=== PATIENT | male | born 1945 | race Caucasian/White ===

== ENCOUNTER 2020-08-15 08:58 | Inpatient (IN) | payer OTHER ==
[~2020-08-15] VITALS: Ht 180.3 cm; Wt 90.7 kg
[2020-08-15 09:03] VITALS: BP 113/82
[2020-08-15] MEDS ORDERED: OMEPRAZOLE 20 M20 M1 PO (09:09)
[2020-08-15] MEDS ORDERED: LIPITOR40 MG PO (09:09)
[2020-08-15] MEDS ORDERED: CHLORTHALIDONE25 MG PO (09:09)
[2020-08-15] MEDS ORDERED: ASA81BEC PO (09:10)
[2020-08-15] MEDS ORDERED: VITAMIN D325 MC3 PO (09:10)
[2020-08-15] MEDS ORDERED: LISINOPRIL20 MG PO (09:10)
[2020-08-15] MEDS ORDERED: NORVASC10 MG PO (09:10)
[2020-08-15] MEDS ORDERED: CREON DR 24,001 EACH PO (09:11)
[2020-08-15] MEDS ORDERED: LEVEMIR100 UNIT/1 SUBQ (09:11)
[2020-08-15 09:21] LABS: ABSOLUTE EOSINOPHILS 0.1 thou/uL (0.0-0.7); ABSOLUTE LYMPHOCYTES 1.2 thou/uL (0.8-5.3); ABSOLUTE MONOCYTES 0.6 thou/uL (0.0-1.2); ABSOLUTE NEUTROPHILS 4.8 thou/uL (1.6-8.1); BASOPHILS 0.7 %; EOSINOPHILS 1.8 %; HEMOGLOBIN 12.8 gm/dL (14.0-18.0); LYMPHOCYTES 18.1 %; MCH 28.8 pg (26.0-34.0); MCHC 33.6 g/dL (28.0-37.0); MCV 85.8 fL (80.0-100.0); MPV 6.6 fl. (7.2-11.1); NUCLEATED RBCS 0 /100WBC; PLATELET COUNT* 190 thou/uL (150-400); POLYS 70.4 %; RBC 4.43 mil/uL (4.50-6.00); RDW-CV 16.1 % (10.5-14.5); WBC 6.8 thou/uL (4.0-11.0)
[2020-08-15 09:29] LABS: CALCIUM 7.9 mg/dL (8.5-10.1); CREATININE 1.9 mg/dL (0.6-1.3)
[2020-08-15 09:32] LABS: INR 1.1; PROTIME 11.6 Seconds (9.20-11.50)
[2020-08-15 09:41] LABS: ALBUMIN 3.3 g/dL (3.4-5.0); TOTAL BILIRUBIN 0.6 mg/dL (<0.1-1.0); TOTAL PROTEIN 6.3 g/dL (6.4-8.2)
--- NOTE | 2020-08-15 10:35 | EKG ---
[place] [address] ELECTROCARDIOGRAM REPORT Name: REYNAGLENYS Chanel Room: [facility]#: [id number] Admission: 08/15/20 Attend Phys: Discharge: Date of : 47 Date of Service: 08/15/20901 Report #: [id number] THIS REPORT FOR: //name// [facility] ED Test Date: 2020-08-15 Test Time: 09:02:01 Pat Name: GLENYS ORELLANA Department: Room: Gender: Set Builder: COLIN : 1945 Requested By: Jonas Miller Order Number: [id number] MD: Trevon Khan Measurements Intervals [place] Rate: 103 P: 64 [place]: 204 QRS: -72 QRSD: 84 T: 94 QT: 340 QTc: 445 Interpretive Statements Sinus tachycardia Atrial premature complex Abnormal R-wave progression, early transition Inferior infarct, old Consider anterior infarct Lateral leads are also involved Compared to ECG 08/15/2020 08:46:55 Atrial premature complex(es) now present Myocardial infarct finding still present Electronically Signed On 08-15-2020 10:35:21 MACHINE SETUP OPERATOR by Trevon Khan [email or web address] <ELECTRONICALLY SIGNED> By: Trevon Khan MD, [facility] 08/15/20 1035 1 09 Trevon Khan MD, [facility] /EPI
[2020-08-15 13:18] VITALS: BP 132/70
[2020-08-15 13:25] VITALS: BP 155/90
[2020-08-15] MEDS ORDERED: NOVOLOG100 UNIT/1 SUBQ (14:17)
[2020-08-15 15:28] LABS: CALCIUM 7.9 mg/dL (8.5-10.1); CREATININE 1.8 mg/dL (0.6-1.3)
--- NOTE | 2020-08-15 15:53 | 2DMMODE ---
[place] [address] 2 D/M-MODE ECHOCARDIOGRAM Name: GLENYS ORELLANA Room: [address] ADM IN .R.#: [id number] Admission: 08/15/20 Attend Phys: Marcelo Jaime, Discharge: Date of : 47 Date of Service: 08/15/20 1553 Report #: [id number] THIS REPORT FOR: cc: [facility] - Clinic physician unknown [facility] - Clinic physician unknown Trevon Khan MD [facility] ~ APPROVED REPORT Study performed: 08/15/2020 15:22:09 EXAM: Comprehensive 2D, Doppler, and color-flow Echocardiogram Patient Location: In-Patient Room #: [facility] Status: routine BSA: 2.14 HR: 78 bpm BP: 132/70 mmHg Rhythm: NSR Other Information Study Quality: Good Indications Abnormal ECG 2D Dimensions IVSd: 13.74 (7-11mm) LVOT Diam: 19.54 (18-24mm) LVDd: 46.21 mm PWd: 12.74 (7-11mm) Ascending Ao: 34.36 (22-36mm) LVDs: 30.67 (25-40mm) Aortic Root: 39.22 mm Volumes Left Atrial Volume (Systole) LA ESV Index: 27.90 mL/m2 Aortic Valve AoV Peak Bautista.: 1.61 m/s AO Peak Gr.: 10.41 mmHg LVOT Max P.97 mmHg AO Mean Gr.: 6.00 mmHg LVOT Mean P.75 mmHg LVOT Max V: 0.86 m/s AO V2 VTI: 26.87 cm LVOT Mean V: 0.62 m/s RODRIGUEZ (VTI): 2.25 cm2 LVOT V1 VTI: 20.21 [place] [address] 2 D/M-MODE ECHOCARDIOGRAM Name: GLENYS ORELLANA Room: [address] IN .R.#: [id number] Admission: 08/15/20 Attend Phys: Marcelo Jaime, Discharge: Date of : 47 Date of Service: 08/15/20 1553 Report #: [id number] Mitral Valve E/A Ratio: 0.81 MV Decel. Time: 176.12 ms MV E Max Bautsita.: 0.98 m/s MV PHT: 51.07 ms MVA (PHT): 4.31 cm2 TDI E/Lateral E': 8.17 E/Medial E': 8.17 Medial E' Bautista.: 0.12 m/s Lateral E' Bautista.: 0.12 m/s Pulmonary Valve PV Peak Bautista.: 0.99 m/s PV Peak Gr.: 3.94 mmHg Left Ventricle The left ventricle is normal size. There is normal LV segmental wall motion. Mild concentric left ventricular hypertrophy. Left ventricular systolic function is normal. The left ventricular ejection fraction is within the normal range. LVEF is 60-65%. Grade I - abnormal relaxation pattern. Right Ventricle The right ventricle is normal size. The right ventricular systolic function is normal. Atria The left atrium size is normal. The right atrium size is normal. Aortic Valve Bioprosthetic aortic valve is present. No aortic regurgitation is present. There is no aortic valvular stenosis. Mitral Valve There is mitral annular calcification. The mitral valve is normal in structure. Mild mitral regurgitation. No evidence of mitral valve stenosis. Tricuspid Valve The tricuspid valve is normal in structure. Trace tricuspid regurgitation. No pulmonary hypertension. Pulmonic Valve The pulmonary valve is normal in structure. There is no pulmonic [place] [address] 2 D/M-MODE ECHOCARDIOGRAM Name: GLENYS ORELLANA Room: [address] IN [facility]#: [id number] Admission: 08/15/20 Attend Phys: Marcelo Jaime, Discharge: Date of : 47 Date of Service: 08/15/20 1553 Report #: [id number] Great Vessels The aortic root is normal in size. IVC is normal in size and collapses >50% with inspiration. Pericardium There is no pericardial effusion. <Conclusion> Mild concentric left ventricular hypertrophy. LVEF is 60-65%. Bioprosthetic aortic valve is present. Mild mitral regurgitation. <ELECTRONICALLY SIGNED> By: Trevon Khan MD, [facility] 08/15/20 1553 [id number] Trevon Khan MD, FACC /INF
[2020-08-15 16:29] VITALS: BP 140/76
[2020-08-15 20:22] VITALS: BP 141/82
[2020-08-15 23:53] VITALS: BP 146/74
[2020-08-16 05:53] LABS: ABSOLUTE EOSINOPHILS 0.2 thou/uL (0.0-0.7); ABSOLUTE LYMPHOCYTES 1.5 thou/uL (0.8-5.3); ABSOLUTE MONOCYTES 0.6 thou/uL (0.0-1.2); BASOPHILS 0.7 %; EOSINOPHILS 2.5 %; HEMATOCRIT 37.1 % (42.0-52.0); HEMOGLOBIN 12.4 gm/dL (14.0-18.0); LYMPHOCYTES 23.7 %; MCH 28.1 pg (26.0-34.0); MCHC 33.3 g/dL (28.0-37.0); MCV 84.3 fL (80.0-100.0); MONOCYTES 9.3 %; MPV 7.1 fl. (7.2-11.1); NUCLEATED RBCS 0 /100WBC; PLATELET COUNT* 199 thou/uL (150-400); POLYS 63.8 %; RDW-CV 15.8 % (10.5-14.5); WBC 6.3 thou/uL (4.0-11.0)
[2020-08-16 06:03] LABS: CALCIUM 7.9 mg/dL (8.5-10.1); CREATININE 1.8 mg/dL (0.6-1.3); POTASSIUM 3.9 mmol/L (3.5-5.1)
[2020-08-16 08:15] VITALS: BP 143/84
--- NOTE | 2020-08-16 08:32 | CON ---
[address] [address] CONSULTATION Name: GLENYS ORELLANA Darío Room: [address] ADM IN M.R.#: [id number] Admission: 08/15/20 Attend Phys: Marcelo Jaime MD Discharge: Date of : 47 Report #: [id number] THIS REPORT FOR: cc: [facility] - Clinic physician unknown [facility] - Clinic physician unknown ~ Trevon Khan MD [facility] DATE OF SERVICE: 08/15/2020 CARDIOLOGY CONSULTATION HISTORY OF PRESENT ILLNESS: The patient is a 75-year-old white male who I was asked to see in the hospital today after he was noted to be tachycardic. The history is obtained from the patient. There are no old records available. There are no family members available. The patient has a long history of diabetes and hypertension. He has been told he had a heart murmur in the past. He notes he had a heart catheterization at and was found to have coronary artery disease. He underwent 4-vessel bypass surgery at [facility] about 3 months ago. Surgery apparently went well. He currently is enrolled in cardiac rehab here at [facility]. He notes a couple of weeks ago, he went to rehabilitation and his heart rate was noted to be fast. He was sent to the Emergency Room at the [facility] and was given some fluids and sent home. He has been doing well, although he did have a loose stool recently. Today, he was at rehab here at [facility] when his heart rate was noted to be elevated. He was sent to the Emergency Room and evaluated. He was admitted for further evaluation and treatment. He denies recent chest tightness, shortness of breath, palpitations, syncope, or peripheral edema. He denied any fever, cough, bleeding. He denies exertional dyspnea, palpitations, or syncope. PAST MEDICAL HISTORY: Significant for previous episode of pancreatitis requiring surgery at . He has chronic kidney disease, diabetes and hypertension. CURRENT MEDICATIONS: Chlorthalidone, Lipitor, omeprazole, lisinopril, amlodipine, aspirin, insulin. ALLERGIES: He has no known drug allergies. FAMILY HISTORY: Negative for heart disease. SOCIAL HISTORY: He is . He and his live in [place]. He retired from [employer]. No smoking. Rarely drinks alcohol. REVIEW OF SYSTEMS: No history of stroke, asthma, peptic ulcer disease, liver disease. He has chronic kidney disease. [place] [address] CONSULTATION Name: GLENYS ORELLANA Room: [address]#: [id number] Admission: 08/15/20 Attend Phys: Marcelo Jaime MD Discharge: Date of : 47 Report #: [id number] replaced at the time of his open heart surgery. No history of cancer, psychiatric illness, chronic skin condition. PHYSICAL EXAMINATION: GENERAL: Revealed an elderly male, lying in bed, he appeared in no distress. VITAL SIGNS: Initially blood pressure 110/80, pulse is 100. He was afebrile. HEENT: He was anicteric. Conjunctivae pink. Mucous membranes moist. NECK: Neck veins do not appear distended. No carotid bruits. CHEST: Clear to auscultation. CARDIOVASCULAR: Regular rate and rhythm, grade 2 systolic ejection murmur. ABDOMEN: Soft. EXTREMITIES: Had no edema. Dorsalis pedis pulse 2+ bilaterally. SKIN: Cool and dry. NEUROLOGIC: Nonfocal. RADIOLOGICAL DATA: His ECG on admission showed sinus tachycardia, evidence of previous inferior and anterior infarction, but no acute ST or T-wave changes were noted. His workup in the Emergency Room, he had a portable chest x-ray that showed normal heart size, clear lung aleman, elevated right hemidiaphragm. LABORATORY WORK: Sodium 136, BUN 22, creatinine 1.9, glucose 285. His troponin is 0.06. BNP 234. White blood cell count 6.8, hemoglobin 12.8. His COVID-19 antigen stat test was negative. IMPRESSION AND RECOMMENDATIONS: 1. Sinus tachycardia. Suspect dehydrated. No evidence of infection. I would check thyroid function studies. 2. Previous coronary artery bypass surgery. No recent angina. We would continue aspirin 81 mg a day. 3. Previous aortic valve replacement using tissue valve. 4. Diabetes. 5. Hypertension. The patient has been on an DUYEN inhibitor, calcium joshua and diuretic. 6. Chronic kidney disease. <ELECTRONICALLY SIGNED> By: Trevon Khan MD, [facility] 08/16/20 0832 1402 [id number] Markus Khan MD, [facility] /nt
[2020-08-16 11:23] VITALS: BP 158/77
[2020-08-16 15:24] VITALS: BP 134/78
[2020-08-16 19:52] VITALS: BP 141/81
[2020-08-16 23:59] VITALS: BP 133/88
[2020-08-17 03:58] LABS: ABSOLUTE BASOPHILS 0.1 thou/uL (0.0-0.2); ABSOLUTE EOSINOPHILS 0.2 thou/uL (0.0-0.7); ABSOLUTE LYMPHOCYTES 1.8 thou/uL (0.8-5.3); ABSOLUTE MONOCYTES 0.7 thou/uL (0.0-1.2); ABSOLUTE NEUTROPHILS 4.8 thou/uL (1.6-8.1); BASOPHILS 1.1 %; EOSINOPHILS 2.9 %; HEMATOCRIT 38.2 % (42.0-52.0); HEMOGLOBIN 12.4 gm/dL (14.0-18.0); LYMPHOCYTES 23.6 %; MCH 27.5 pg (26.0-34.0); MCHC 32.5 g/dL (28.0-37.0); MCV 84.6 fL (80.0-100.0); MONOCYTES 9.3 %; MPV 6.8 fl. (7.2-11.1); NUCLEATED RBCS 0 /100WBC; PLATELET COUNT* 210 thou/uL (150-400); POLYS 63.1 %; RBC 4.52 mil/uL (4.50-6.00); RDW-CV 16.2 % (10.5-14.5); WBC 7.6 thou/uL (4.0-11.0)
[2020-08-17 04:13] VITALS: BP 124/73
[2020-08-17 04:14] LABS: CREATININE 1.8 mg/dL (0.6-1.3); POTASSIUM 3.8 mmol/L (3.5-5.1)
[2020-08-17 08:00] VITALS: BP 136/80
[2020-08-17 08:15] VITALS: BP 136/80
--- NOTE | 2020-08-17 10:08 | EKG ---
[place] [address] ELECTROCARDIOGRAM REPORT Name: GLENYS ORELLANA Room: [address] ADM IN .R.#: [id number] Admission: 08/15/20 Attend Phys: Marcelo Jaime, Discharge: Date of : 47 Date of Service: 08/17/20 0839 Report #: [id number] THIS REPORT FOR: //name// [facility] Test Date: 2020-08-17 Test Time: 08:39:17 Pat Name: GLENYS ORELLANA Department: Room: [address] Gender: M Uptwist Spinner: AIRAM : 1945 Requested By: Trevon Khan Order Number: [id number] Reading MD: Trevon Khan Measurements Intervals [place] Rate: 73 P: 26 [place]: 207 QRS: -69 QRSD: 91 T: 97 QT: 424 QTc: 468 Interpretive Statements Sinus rhythm inferior infarction old Abnormal R-wave progression, late transition Inferior infarct, old Lateral leads are also involved Compared to ECG 08/15/2020 09:02:01 Sinus tachycardia no longer present Atrial premature complex(es) no longer present Myocardial infarct finding still present Electronically Signed On 08-17-2020 10:08:29 WAFER FABRICATION TECHNICIAN by Trevon Khan [email or web address] <ELECTRONICALLY SIGNED> By: Trevon Khan MD, [facility] 08/17/20 1008 8 8 Trevon Khan MD, [facility] /EPI
[2020-08-17 12:16] VITALS: BP 121/74
[2020-08-17 16:55] VITALS: BP 113/70
[2020-08-17 21:04] VITALS: BP 146/81
[2020-08-18 00:20] VITALS: BP 116/77
[2020-08-18 04:23] VITALS: BP 99/67
[2020-08-18 07:55] VITALS: BP 140/81
--- NOTE | 2020-08-18 11:23 | EKG ---
[place] [address] ELECTROCARDIOGRAM REPORT Name: ORELLANAGLENYS Room: [address] ADM IN .R.#: [id number] Admission: 08/15/20 Attend Phys: Marcelo Jaime, Discharge: Date of : 47 Date of Service: 08/18/20 0841 Report #: [id number] THIS REPORT FOR: //name// [facility] Test Date: 2020-08-18 Test Time: 08:41:49 Pat Name: GLENYS ORELLANA Department: Room: [address] Gender: M Application Engineer: : 1945 Requested By: Trevon Khan Order Number: [id number] Reading MD: Trevon Khan Measurements Intervals [place] Rate: 67 P: 29 [place]: 219 QRS: -75 QRSD: 88 T: 95 QT: 439 QTc: 464 Interpretive Statements Sinus rhythm Borderline prolonged LA interval Left anterior fascicular block Consider anterior infarct Nonspecific T abnormalities, lateral leads Baseline wander in lead(s) V3,V5 Compared to ECG 08/17/2020 08:39:17 Myocardial infarct finding still present Electronically Signed On 08-18-2020 11:23:23 FIELD CARE COORDINATOR by Trevon Khan [email or web address] <ELECTRONICALLY SIGNED> By: Trevon Khan MD, [facility] 08/18/20 1123 0 0 Trevon Khan MD, [facility] /EPI
[2020-08-18 12:23] VITALS: BP 143/82
[2020-08-18 13:00] VITALS: BP 143/82
[2020-08-18] MEDS ORDERED: SORINE 80 MG TA80 M1 PO (13:38)
== END 2020-08-18 14:50 | disposition home or self-care (01) | DRG 308 ==
LOC: M.ERS 08:58 → M.TBA-ER 10:58 → M.2W 10:58
PROVIDERS: Emergency Medicine Emergency Medical Services; Internal Medicine Cardiovascular Disease; ADMIT Internal Medicine; ATTEND Internal Medicine
DX: I47.1 Supraventricular tachycardia (principal); N17.0 Acute kidney failure with tubular necrosis; Z20.822 Contact with and (suspected) exposure to COVID-19; E11.22 Type 2 diabetes mellitus with diabetic chronic kidney disease; N18.9 Chronic kidney disease, unspecified; I12.9 Hypertensive chronic kidney disease with stage 1 through stage 4 chronic kidney disease, or unspecified chronic kidney disease; E11.65 Type 2 diabetes mellitus with hyperglycemia; I25.10 Atherosclerotic heart disease of native coronary artery without angina pectoris; Z85.46 Personal history of malignant neoplasm of prostate; Z95.2 Presence of prosthetic heart valve; Z95.1 Presence of aortocoronary bypass graft; Z79.899 Other long term (current) drug therapy